=== PATIENT | female | born 1995 | race African-American/Black ===

== ENCOUNTER 2018-02-18 22:53 | Day surgery (SDC) | payer OTHER ==
[~2018-02-18] VITALS: Ht 165.1 cm; Wt 57.3 kg
--- NOTE | ~2018-02-18 | OP ---
PATIENT NAME: CHELSEA BARR MEDICAL RECORD: [id number] :89 LOCATION:D.OPS ADMISSION DATE: SURGEON: NIKOLE ALBERT MD DATE OF OPERATION: 02/19/2018 PREOPERATIVE DIAGNOSIS: Infrapatellar tendon laceration. POSTOPERATIVE DIAGNOSIS: Skin lacerations. PROCEDURE: I&D of open wound and simple closure of infrapatellar at the tendon laceration. SURGEON: Nikole Albert MD ANESTHESIA: General. INTRAOPERATIVE COMPLICATIONS: None. SUMMARY OF PATHOLOGIC FINDINGS: While both radiographs and ER physician reports that this patient had a complete laceration of her patellar tendon, it was absolutely not touched. The laceration went down to but not through the paratenon. For this reason, the wound was copiously irrigated and then closed with a simple suture. OPERATIVE SUMMARY IN DETAIL: After obtaining the appropriate preoperative orthopedic surgery consent as well as anesthetic consultation, evaluation, and clearance, the patient was brought to the operating room and placed on table in supine position. After adequate general laryngeal mask airway was administered, tourniquet was placed about the proximal aspect of the right lower extremity. Right knee was prepped and draped in routine sterile fashion. The tourniquet was not used during this case. After simple exploration and I&D of the wound, it was found that the tendon was not at all a part of the laceration. After further irrigation, the wound was closed with 3-0 Prolene in routine interrupted fashion. Sterile dressings were applied. The patient was awakened and taken to the recovery room in stable condition. All final needle and sponge counts were correct. TRANSINT:[id number] Voice Confirmation ID: [id number] DOCUMENT ID: [id number] NIKOLE ALBERT MD at 1207 CC: [id number] DICTATION DATE: 02/22/18 0858 [employer] MATE: 02/22/18 0948 [facility] 02/19/[address] [id number]
[2018-02-19 00:48] LABS: BASOPHILS 0.2 % (0-2); EOSINOPHILS 0.8 % (0-7); HEMATOCRIT 35.6 % (36.0-48.0); HEMOGLOBIN 12.4 g/dL (12-16); IMMATURE GRANULOCYTES 0.2 % (0-5); LYMPHOCYTES 19.8 % (15-50); MCH 32.3 pg (26.0-34.0); MCHC 34.8 g/dL (31.0-37.0); MCV 92.7 fL (80.0-100.0); MONOCYTES 5.1 % (2-11); NEUTROPHILS 73.9 % (40-80); PLATELET COUNT 373 10x3/uL (130-400); RBC 3.84 10x6/uL (4.00-5.40); RDW 12.7 % (11.5-14.5); WBC 13.4 10x3/uL (4.8-10.8)
[2018-02-19 00:51] VITALS: BP 120/91
[2018-02-19 01:00] LABS: HCG SERUM NEGATIVE (NEGATIVE)
[2018-02-19 01:02] LABS: APPEARANCE CLEAR (CLEAR); BILIRUBIN NEGATIVE (NEGATIVE); COLOR YELLOW (YELLOW); GLUCOSE NEGATIVE (NEGATIVE); KETONE NEGATIVE (NEGATIVE); NITRITE NEGATIVE (NEGATIVE); PROTEIN NEGATIVE (NEGATIVE); UROBILINOGEN NORMAL (NORMAL)
[2018-02-19 01:02] LABS: ALBUMIN 4.4 g/dL (3.4-5.0); ALKALINE PHOSPHATASE 46 U/L (46-116); ALT (SGPT) 28 U/L (10-68); BILIRUBIN - TOTAL 0.73 mg/dL (0.2-1.3); CALC OSMOLALITY 277 mosm/kg (275-300); CALCIUM 9.2 mg/dL (8.5-10.1); CARBON DIOXIDE 24.5 mmol/L (21.0-32.0); CHLORIDE - SERUM 103 mmol/L (98-107); CREATININE - SERUM 0.7 mg/dL (0.6-1.3); GLUCOSE 94 mg/dL (74-106); POTASSIUM - SERUM 3.3 mmol/L (3.5-5.1); PROTEIN - SERUM 8.1 g/dL (6.4-8.2); SODIUM 139 mmol/L (136-145); UREA NITROGEN 13 mg/dL (7-18); eGFR NON AFRICAN AMERICAN > 90 mL/min (90-120)
[2018-02-19 01:09] LABS: APTT 28.5 SECONDS (22.8-39.4); INR 0.98 (0.85-1.17); PROTIME 12.6 SECONDS (11.6-15.0)
[2018-02-19 02:33] VITALS: BP 107/69; Ht 165.1 cm; Wt 57.3 kg
[2018-02-19 04:00] VITALS: BP 125/75
[2018-02-19 09:00] VITALS: BP 112/61
[2018-02-19 10:25] VITALS: BP 115/66
[2018-02-19] MEDS ORDERED: NORCO 10-325 TA1 TAB PO (11:20)
[2018-02-19] MEDS ORDERED: KEFLEX500 MG PO (11:20)
== END 2018-02-19 15:20 | disposition home or self-care (01) ==
LOC: OBSVTIME → D.ER 22:53 → D.OPS 22:53 → OBSVTIME 02-19 00:59 → D.ER 02-19 00:59 → D.M3 02-19 00:59 → D.ER 02-19 01:38 → EDSTATUS 02-19 12:00 → D.OPS 02-19 15:20 → D.M3 02-19 15:20
PROVIDERS: Family Medicine
DX: S81.011A Laceration without foreign body, right knee, initial encounter (principal); W01.198A Fall on same level from slipping, tripping and stumbling with subsequent striking against other object, initial encounter; Y92.002 Bathroom of unspecified non-institutional (private) residence as the place of occurrence of the external cause